=== PATIENT | male | born 2000 | race Caucasian/White ===

== ENCOUNTER 2022-05-09 07:19 | Emergency (ER) | payer BC ==
[2022-05-09 08:44] LABS: HEMOGLOBIN 13.9 gm/dl (14.0-17.5); RED BLOOD COUNT 4.56 M/UL (4.20-5.50); WHITE BLOOD COUNT 9.8 K/UL (4.5-11.0)
[2022-05-09 09:07] LABS: BUN/CREATININE RATIO 21 (0-10)
[2022-05-09] MEDS ORDERED: SENNA8.6 MG PO (11:31)
[2022-05-09] MEDS ORDERED: CLEOCIN HCL300 MG PO (11:31)
[2022-05-09] MEDS ORDERED: ROBAXIN 750 MG750 MG PO (11:31)
== END 2022-05-09 11:43 | disposition home or self-care (01) ==
LOC: ER1 07:19
PROVIDERS: Student in an Organized Health Care Education/Training Program
DX: K60.2 Anal fissure, unspecified (principal); F17.200 Nicotine dependence, unspecified, uncomplicated
CPT/HCPCS: 80053; 85025; 96374; 96375; 99284; J2060; J2270; Q9967